=== PATIENT | male | born 1965 | race Caucasian/White ===

== ENCOUNTER → 2018-12-06 | Outpatient (CLI) | payer OTHER | END | disposition home or self-care (01) | LOC: RAD 17:27 | PROVIDERS: ATTEND Urology | DX: N20.0 Calculus of kidney (principal); E66.9 Obesity, unspecified | CPT/HCPCS: 74018 ==

== ENCOUNTER 2019-05-22 14:12 | Outpatient (CLI) | payer OTHER ==
[2019-06-04] MEDS ORDERED: FLEC50TA25 PO (07:30)
[2019-06-04] MEDS ORDERED: RIVA20TA PO (07:30)
[2019-06-04] MEDS ORDERED: METO25TA35 PO (07:30)
[2019-06-04] MEDS ORDERED: ZOLP-413 PO (07:30)
[2019-06-08] MEDS ORDERED: HYDR-3237 PO (10:20)
[2019-06-08] MEDS ORDERED: DOCU-131 PO (10:21)
== END 2019-05-22 23:59 | disposition home or self-care (01) ==
LOC: CFH 14:12
PROVIDERS: ATTEND Urology
DX: N20.0 Calculus of kidney (principal); M43.17 Spondylolisthesis, lumbosacral region; N28.1 Cyst of kidney, acquired
CPT/HCPCS: 74176

== ENCOUNTER 2019-09-23 08:11 | Outpatient (CLI) | payer OTHER ==
[~2019-09-23 08:11] MED LIST: DOCU-131 PO; FLEC50TA25 PO; HYDR-3237 PO; METO25TA35 PO; RIVA20TA PO; ZOLP-413 PO
== END 2019-09-23 23:59 | disposition home or self-care (01) ==
LOC: CFH 08:11
PROVIDERS: ATTEND Urology
DX: N20.0 Calculus of kidney (principal); M47.816 Spondylosis without myelopathy or radiculopathy, lumbar region; N28.1 Cyst of kidney, acquired; K57.30 Diverticulosis of large intestine without perforation or abscess without bleeding; M13.851 Other specified arthritis, right hip; Z96.0 Presence of urogenital implants
CPT/HCPCS: 74176

== ENCOUNTER → 2020-01-22 | Outpatient (CLI) | payer OTHER | END | disposition home or self-care (01) | LOC: RAD 14:12 | PROVIDERS: ATTEND Urology | DX: N20.0 Calculus of kidney (principal); N13.30 Unspecified hydronephrosis; N13.4 Hydroureter; N28.1 Cyst of kidney, acquired; K44.9 Diaphragmatic hernia without obstruction or gangrene; K57.30 Diverticulosis of large intestine without perforation or abscess without bleeding | CPT/HCPCS: 74176 ==

== ENCOUNTER → 2020-03-08 | Outpatient (CLI) | payer OTHER ==
[~2020-03-08] MED LIST changes: +HYDR-3240 PO; +MULT-658 PO; +ONDA4TAB7 PO; +cipro PO
[2020-03-08 16:12] LABS: MICROSCOPIC AUTO
[2020-03-08 16:18] LABS: BASOPHILS # (AUTO) 0.02 x10^3/uL (0-0.1); BASOPHILS % (AUTO) 0 % (0-1); EOSINOPHILS # (AUTO) 0.21 x10^3/uL (0-0.4); EOSINOPHILS % (AUTO) 4 % (1-7); LYMPHOCYTES # (AUTO) 1.78 x10^3/uL (1-3.4); LYMPHOCYTES % (AUTO) 31 % (22-44); MD NO; MEAN CORPUSCULAR HEMOGLOBIN 23.8 pg (27.5-34.5); MEAN CORPUSCULAR HGB CONC 32.4 g/dL (33.2-36.2); MEAN CORPUSCULAR VOLUME 73.6 fL (81-97); MEAN PLATELET VOLUME 8.5 fL (7.4-10.4); MONOCYTES % (AUTO) 5 % (2-9); NEUTROPHILS # (AUTO) 3.47 x10^3/uL (1.8-6.8); NEUTROPHILS % (AUTO) 60 % (42-75); PLATELET COUNT 359 x10^3/uL (130-400); RED BLOOD COUNT 4.81 x10^6/uL (4.38-5.82); RED CELL DISTRIBUTION WIDTH 15.5 % (9.4-14.8)
[2020-03-08 16:23] LABS: ANION GAP 7 mmol/L (5-15); CALCIUM 8.6 mg/dL (8.5-10.1); CHLORIDE 110 mmol/L (98-107); CREATININE 1.13 mg/dL (0.7-1.3)
== END | disposition home or self-care (01) ==
LOC: STAR 15:11
PROVIDERS: ATTEND Urology
DX: Z01.818 Encounter for other preprocedural examination (principal); N20.0 Calculus of kidney
CPT/HCPCS: 36415; 80048; 81001; 85025; 87086; 93005

== ENCOUNTER 2020-03-10 14:19 | Day surgery (SDC) | payer OTHER ==
[~2020-03-10] VITALS: Ht 190.5 cm; Wt 139.2 kg
[~2020-03-10 14:19] MED LIST changes: -HYDR-3240 PO; -ONDA4TAB7 PO
[2020-03-10] MEDS ORDERED: LACTATED RINGERS 1,000 ML IV SCH (14:33)
[2020-03-10] MEDS ORDERED: CHLORHEXIDINE 15 ML UDC MM ONE (15:00)
[2020-03-10] MEDS ORDERED: MIDAZOLAM 1 MG/ML, 2ML ONE (16:09)
[2020-03-10] MEDS ORDERED: FENTANYL PF 250 MCG/5ML ONE (16:09)
[2020-03-10] MEDS ORDERED: CEFTRIAXONE 1,000 MG ONE (16:29)
[2020-03-10] MEDS ORDERED: CEFAZOLIN 1,000 MG ONE (17:00)
[2020-03-10] MEDS ORDERED: OXYcodone 5 MG/5 ML ORAL.SOL UDC PO PRN (17:00)
[2020-03-10] MEDS ORDERED: NEOSTIGMINE 1 MG/ML, 10ML ONE (17:00)
[2020-03-10] MEDS ORDERED: FENTANYL PF 100 MCG/2ML IV PRN (17:00)
[2020-03-10] MEDS ORDERED: PROMETHAZINE 25 MG SUPP PR PRN (17:00)
[2020-03-10] MEDS ORDERED: HYDROmorphone 1 MG/ML, 1ML INJ IVPush PRN (17:00)
[2020-03-10] MEDS ORDERED: DIAZEPAM 5 MG/ML, 2ML IVPush PRN (17:00)
[2020-03-10] MEDS ORDERED: PROPOFOL 10 MG/ML, 20ML ONE (17:00)
[2020-03-10] MEDS ORDERED: ONDANSETRON 2MG/ML, 2ML ONE (17:00)
[2020-03-10] MEDS ORDERED: LABETALOL 5MG/ML, 20ML IV PRN (17:00)
[2020-03-10] MEDS ORDERED: PROMETHAZINE 25 MG/ML, 1ML IVPush PRN (17:00)
[2020-03-10] MEDS ORDERED: GLYCOPYRROLATE 0.2MG/1ML, 5ML ONE (17:00)
[2020-03-10] MEDS ORDERED: ROCURONIUM 10MG/ML,5ML ONE (17:00)
[2020-03-10] MEDS ORDERED: ACETAMINOPHEN 325 MG TABLET PO PRN (17:00)
[2020-03-10] MEDS ORDERED: METOPROLOL 1 MG/ML, 5ML IV PRN (17:00)
[2020-03-10] MEDS ORDERED: SUCCINYLCHOLINE 20 MG/ML, 10ML ONE (17:00)
[2020-03-10] MEDS ORDERED: ONDANSETRON 2MG/ML, 2ML IVPush PRN (17:00)
[2020-03-10] MEDS ORDERED: LORazepam 2 MG/ML, 1ML IVPush PRN (17:00)
[2020-03-10] MEDS ORDERED: DEXAMETHASONE 4 MG/ML, 1ML ONE (17:00)
[2020-03-10 19:06] VITALS: BP 158/92
[2020-03-10] MEDS ORDERED: HYDR-3240 PO (19:37)
[2020-03-10] MEDS ORDERED: ONDA4TAB7 PO (19:40)
== END 2020-03-10 20:15 | disposition home or self-care (01) ==
LOC: OR 14:19 → 4NE 18:00 → OR 20:15
PROVIDERS: ATTEND Urology
DX: N20.0 Calculus of kidney (principal); Z11.59 Encounter for screening for other viral diseases; N39.0 Urinary tract infection, site not specified; I48.91 Unspecified atrial fibrillation; Z88.3 Allergy status to other anti-infective agents; Z91.030 Bee allergy status; Z91.041 Radiographic dye allergy status; Z79.899 Other long term (current) drug therapy; Z98.890 Other specified postprocedural states; Z79.01 Long term (current) use of anticoagulants; Z86.718 Personal history of other venous thrombosis and embolism; Z79.2 Long term (current) use of antibiotics; Z86.711 Personal history of pulmonary embolism
CPT/HCPCS: 52353; J0330; J0690; J0696; J1100; J2250; J2405; J2704; J2710; J3010; J7120; U0001; 76000; G0378

== ENCOUNTER 2020-08-30 10:50 | Emergency (ER) | payer OTHER ==
[~2020-08-30] VITALS: Ht 190.5 cm; Wt 143.4 kg
[~2020-08-30 10:50] MED LIST changes: +HYDR-3240 PO; +ONDA4TAB7 PO
[2020-08-30] MEDS ORDERED: LIDOCAINE 1%-EPI 1:100K, 20ML SQ ONE (11:00)
[2020-08-30] MEDS ORDERED: OXYMETAZOLINE NASAL SPRAY 0.05%, 15ML NAS ONE (11:00)
[2020-08-30 11:34] LABS: BASOPHILS % (AUTO) 1 % (0-1); EOSINOPHILS % (AUTO) 2 % (1-7); LYMPHOCYTES % (AUTO) 23 % (22-44); MEAN CORPUSCULAR HEMOGLOBIN 24.6 pg (27.5-34.5); MEAN CORPUSCULAR HGB CONC 32.5 g/dL (33.2-36.2); MEAN PLATELET VOLUME 7.9 fL (7.4-10.4); MONOCYTES % (AUTO) 6 % (2-9); NEUTROPHILS % (AUTO) 68 % (42-75); PLATELET COUNT 320 x10^3/uL (130-400); RED BLOOD COUNT 5.98 x10^6/uL (4.38-5.82); RED CELL DISTRIBUTION WIDTH 18.1 % (9.4-14.8)
[2020-08-30 11:35] LABS: MD NO
[2020-08-30 11:45] LABS: ALBUMIN 3.9 g/dL (3.4-5.0); ANION GAP 6 mmol/L (5-15); CALCIUM 9.3 mg/dL (8.5-10.1); CHLORIDE 112 mmol/L (98-107)
[2020-08-30 11:49] LABS: ALANINE AMINOTRANSFERASE 13 U/L (12-78); ALKALINE PHOSPHATASE 61 U/L (45-117); BILIRUBIN,TOTAL 0.4 mg/dL (0.2-1.0); CREATININE 1.29 mg/dL (0.7-1.3); TOTAL PROTEIN 7.6 g/dL (6.4-8.2)
[2020-08-30] MEDS ORDERED: OXYMETAZOLINE NASAL SPRAY 0.05%,30ML ONE (12:52)
[2020-08-30] MEDS ORDERED: TRANEXAMIC ACID 100 MG/ML, 10ML ONE ×2 (13:56→14:02)
[2020-08-30] MEDS ORDERED: TRANEXAMIC ACID 100 MG/ML, 10ML TP ONE (14:00)
[2020-08-30 15:48] VITALS: BP 115/80
--- NOTE | 2020-08-30 15:48 | NUR ---
Pt reports no more bleeding. Pt VSS. Ambulatory at discharge. Given prescription for ATB. Told to follow up with [facility]. Pt verbalized understanding of discharge instructions.
== END 2020-08-30 15:54 | disposition home or self-care (01) ==
LOC: ED 15:30
DX: R04.0 Epistaxis (principal); I48.91 Unspecified atrial fibrillation
CPT/HCPCS: 30901; 36415; 80053; 85025; 99284

== ENCOUNTER 2020-09-01 13:28 | Emergency (ER) | payer OTHER ==
[~2020-09-01] VITALS: Ht 190.5 cm; Wt 142.4 kg
[2020-09-01 13:39] VITALS: BP 132/86
== END 2020-09-01 14:19 | disposition home or self-care (01) ==
LOC: ED 14:05
DX: R04.0 Epistaxis (principal); I48.91 Unspecified atrial fibrillation
CPT/HCPCS: 99281